=== PATIENT | male | born 1960 | race African-American/Black ===

== ENCOUNTER 2017-03-17 14:25 | Emergency (ER) | payer MEDICAID, OTHER ==
[~2017-03-17] VITALS: Ht 182.9 cm; Wt 112.0 kg
[2017-03-17] MEDS ORDERED: KETOROLAC 30MG/ML VIAL IM ONE (15:00)
[2017-03-17 16:40] VITALS: BP 142/79
== END 2017-03-17 17:21 | disposition home or self-care (01) ==
LOC: ER 14:45
DX: S13.4XXA Sprain of ligaments of cervical spine, initial encounter (principal); F17.210 Nicotine dependence, cigarettes, uncomplicated; Z96.659 Presence of unspecified artificial knee joint; V43.52XA Car driver injured in collision with other type car in traffic accident, initial encounter; Y93.89 Activity, other specified; Y92.488 Other paved roadways as the place of occurrence of the external cause
CPT/HCPCS: 71020; 72125; 72131; 76705; 96372; 99284; J1885; A4315